=== PATIENT | female | born 1995 | race Caucasian/White ===

== ENCOUNTER → 2018-05-01 | Outpatient (CLI) | payer BC | LOC: COL.RAD 04-29 10:00 | DX: R35.0 Frequency of micturition (principal) | CPT/HCPCS: Q9967 ==

== ENCOUNTER → 2018-05-16 | Outpatient (CLI) | payer BC | LOC: COL.RAD 10:17 | DX: R35.0 Frequency of micturition (principal); R10.2 Pelvic and perineal pain ==

== ENCOUNTER → 2018-08-29 | Outpatient (CLI) | payer BC | LOC: COL.RAD 07:59 | DX: Z31.41 Encounter for fertility testing (principal) | CPT/HCPCS: Q9967 ==

== ENCOUNTER 2019-06-29 12:21 | Emergency (ER) | payer BC ==
[~2019-06-29] VITALS: Ht 167.6 cm; Wt 75.0 kg
[2019-06-29 13:02] VITALS: TEMP 98.7
[2019-06-29 13:55] LABS: BASO % 0.4 % (0.0-2.0); EOS # 0.1 (0.0-0.7); EOS % 0.6 % (0-4.0); GRAN # 7.2 (1.4-6.5); GRAN % 69.6 % (42.2-75.2); HEMATOCRIT 37.4 % (37.0-47.0); HEMOGLOBIN 12.6 g/dl (12.5-16.0); LYMPH # 2.2 (1.2-3.4); LYMPH % 20.9 % (20.0-51.0); MEAN CELL VOLUME 87 fl (80.0-100.0); MEAN CORPUSCULAR HEMOGLOBIN 29 pg (27.0-31.0); MEAN CORPUSCULAR HGB CONC 34 g/dl (33.0-37.0); MEAN PLATELET VOLUME 9.4 fl (7.4-10.4); MONO # 0.8 (0.1-0.6); MONO % 7.6 % (1.7-9.3); PLATELET COUNT 256 K/mm3 (130-400); RED BLOOD COUNT 4.31 M/mm3 (4.10-5.30)
[2019-06-29 14:04] LABS: PROTHROMBIN TIME 11.2 SECONDS (9.7-12.8)
[2019-06-29 14:08] LABS: ALBUMIN 3.6 gm/dL (3.5-5.0); BILIRUBIN,TOTAL 0.3 mg/dL (0.0-1.0); CREATININE, serum 0.43 (0.52-1.25); POTASSIUM 3.9 mmol/L (3.4-5.0); TOTAL PROTEIN 6.9 gm/dL (6.4-8.2)
--- NOTE | 2019-06-29 14:13 | NUR ---
1351- EFM and TOCO on and tracing. Pt is 35 weeks gestation. G1L0. Denies complications with , no VB, LOF, regular UCs. +FM per Pt. 1413- EFM and TOCO off. Category I FHR tracing noted. No UCs noted on monitor.
[2019-06-29 14:38] LABS: TSH w REFLEX 3.31 uIU/mL (0.465-4.680)
[2019-06-29 15:26] LABS: COLLECTION METHOD CLEAN CATCH
[2019-06-29 16:29] VITALS: BP 114/72; PULSE 109
[2019-06-29 16:32] LABS: PH 6 (5-8); URINE APPEARANCE Clear; URINE COLOR Yellow
[2019-06-29 16:33] LABS: URINE BILIRUBIN Negative (NEGATIVE); URINE BLOOD Negative (NEGATIVE); URINE GLUCOSE Negative (NEGATIVE); URINE KETONE Negative (NEGATIVE); URINE LEUKOCYTE ESTERASE Negative (NEGATIVE); URINE NITRATE Negative (NEGATIVE); URINE PROTEIN(semi-quant) Negative (NEGATIVE); URINE UROBILINOGEN Negative (NEGATIVE)
[2019-06-29 16:35] LABS: URINE RBC 0-2 /hpf
== END 2019-06-29 16:29 | disposition home or self-care (01) ==
LOC: COL.ER 12:21
PROVIDERS: Emergency Medicine
DX: O26.893 Other specified pregnancy related conditions, third trimester (principal); R00.2 Palpitations; Z3A.35 35 weeks gestation of pregnancy
CPT/HCPCS: J7030

== ENCOUNTER 2019-07-25 07:27 | Inpatient (IN) | payer BC ==
[~2019-07-25] VITALS: Ht 167.6 cm; Wt 76.8 kg
[2019-07-25] VITALS (58 sets, daily range): BP systolic 107–145; BP diastolic 55–98; PULSE 76–129; TEMP 97.8–98.6
[2019-07-25] MEDS ORDERED: BENADRYL25 M2 PO (07:56)
[2019-07-25] MEDS ORDERED: PRENATAL TABLET PO (07:56)
--- NOTE | 2019-07-25 08:00 | NUR ---
0740- Pt arrives on unit ambulatory for scheduled induction, present. Oriented to room. Pt into bathroom to change into gown. 0751- Pt into bed, EFM and TOCO on and tracing well. VSS. Assessment completed. IV started without difficulty, labs obtained. Pt tolerated well. Consent form explained and signed.
[2019-07-25 08:40] LABS: BASO % 0.5 % (0.0-2.0); EOS % 0.5 % (0-4.0); GRAN # 5.5 (1.4-6.5); GRAN % 68.1 % (42.2-75.2); HEMATOCRIT 37.1 % (37.0-47.0); HEMOGLOBIN 12.5 g/dl (12.5-16.0); LYMPH # 1.7 (1.2-3.4); LYMPH % 20.4 % (20.0-51.0); MEAN CELL VOLUME 87 fl (80.0-100.0); MEAN CORPUSCULAR HEMOGLOBIN 29 pg (27.0-31.0); MEAN CORPUSCULAR HGB CONC 34 g/dl (33.0-37.0); MEAN PLATELET VOLUME 9.6 fl (7.4-10.4); MONO # 0.8 (0.1-0.6); MONO % 9.9 % (1.7-9.3); PLATELET COUNT 264 K/mm3 (130-400); RED BLOOD COUNT 4.29 M/mm3 (4.10-5.30); REDCELL DISTRIBUTION WIDTH-CV 13.2 % (11.5-14.5)
[2019-07-25 08:43] LABS: ALBUMIN 3.6 gm/dL (3.5-5.0); BILIRUBIN,TOTAL 0.3 mg/dL (0.0-1.0); CALCIUM 9.2 mg/dL (8.4-10.2); CREATININE, serum 0.42 (0.52-1.25); POTASSIUM 4.2 mmol/L (3.4-5.0); TOTAL PROTEIN 6.7 gm/dL (6.4-8.2)
[2019-07-25 08:52] LABS: COLLECTION METHOD CLEAN CATCH
[2019-07-25 08:57] LABS: MUCOUS Present /lpf; PH 7 (5-8); SQUAMOUS EPITHELIAL 0-2 /hpf; URINE APPEARANCE Clear; URINE BACTERIA None Seen /hpf; URINE BILIRUBIN Negative (NEGATIVE); URINE BLOOD Negative (NEGATIVE); URINE COLOR Straw; URINE GLUCOSE Negative (NEGATIVE); URINE KETONE Negative (NEGATIVE); URINE LEUKOCYTE ESTERASE Negative (NEGATIVE); URINE NITRATE Negative (NEGATIVE); URINE PROTEIN(semi-quant) Negative (NEGATIVE); URINE RBC 0-2 /hpf; URINE UROBILINOGEN Negative (NEGATIVE); URINE WBC 0-2 /hpf
--- NOTE | 2019-07-25 11:15 | NUR ---
1058- Dr Layton at bedside, discusses plan of care, questions encouraged. Bedside US completed for position, noted to be vertex. SVE by MD with AROM, scant amount of clear fluid noted. Pt tolerated well.
--- NOTE | 2019-07-25 15:30 | NUR ---
Pt on birthing ball, FHR tracing scrathy due to maternal positioning. RN at bedside adjusting and holding monitor intermittently. UCs not tracing well due to maternal positioning. UCs noted approximately every 2-3 mins per palpation. Pt very uncomfortable with UCs. Coping well with coaching.
--- NOTE | 2019-07-25 19:10 | NUR ---
TOCO READJUSTED TO DETERMINE LATE OR EARLY DECELS
[2019-07-26 03:19] VITALS: BP 104/86; PULSE 114; TEMP 98.7
[2019-07-26 08:35] LABS: HEMATOCRIT 36.8 % (37.0-47.0); HEMOGLOBIN 12.5 g/dl (12.5-16.0)
[2019-07-26 09:00] VITALS: BP 131/75; PULSE 100; TEMP 97.4
--- NOTE | 2019-07-26 10:31 | NUR ---
Patient declined visit.
[2019-07-26 16:30] VITALS: BP 128/77; PULSE 79; TEMP 97.6
[2019-07-26 20:30] VITALS: BP 124/78; PULSE 86; TEMP 98
[2019-07-27 08:45] VITALS: BP 127/73; PULSE 97; TEMP 98
[2019-07-27] MEDS ORDERED: MOTRIN 600600 MG/TAB PO (09:19)
== END 2019-07-27 11:50 | disposition home or self-care (01) | DRG 807 ==
LOC: LDR 07:27 → OB 07-26 01:19
PROVIDERS: ADMIT Obstetrics & Gynecology
PROC: 10E0XZZ Delivery of Products of Conception, External Approach (ICD-10-PCS; principal; 2019-07-25)
PROC: 0HQ9XZZ Repair Perineum Skin, External Approach (ICD-10-PCS; 2019-07-25)
PROC: 3E033VJ Introduction of Other Hormone into Peripheral Vein, Percutaneous Approach (ICD-10-PCS; 2019-07-25)
DX: O14.93 Unspecified pre-eclampsia, third trimester (principal); Z37.0 Single live birth; O99.824 Streptococcus B carrier state complicating childbirth; O99.52 Diseases of the respiratory system complicating childbirth; J45.909 Unspecified asthma, uncomplicated; O70.0 First degree perineal laceration during delivery; O98 Maternal infectious and parasitic diseases classifiable elsewhere but complicating pregnancy, childbirth and the puerperium; Z3A.38 38 weeks gestation of pregnancy
CPT/HCPCS: J2405; J2540; J2590; J2795; J7120

== ENCOUNTER → 2019-07-29 | Outpatient (CLI) | payer BC ==
[~2019-07-29] MED LIST: BENADRYL25 M2 PO; MOTRIN 600600 MG/TAB PO; PRENATAL TABLET PO
--- NOTE | 2019-07-29 12:58 | NUR ---
Nancy Lyssa into walk in clinic with and 4 day old Katie for evaluation. Katie was born on [birth year] vis with a weight of 5#10 oz. Nancy states she has been nursing at least 8 times per day and is having at least 4 transitional stools per day. Nancy reports Katie is only having approx 2 wet diapers per day, but the diapers with stool may also have wet with them. Today's prefeed weight was noted as 5#7.4 oz (2478 gm). She nursed bilaterally, LC offering assistance with latch to obtain deeper latch and positioning. Katie had a total gain of 1.2 oz (34 gm). Her parents note she had eaten approx 30 min before coming into clinic as well. POC: Continue to feed ad tha, paying attention to latch and ensuring proper support of breast and baby. Return to clinic next week for weight check as desired. Questions encouraged and verbalized. Understanding verbalized.
== END ==
LOC: OLC 09:22
DX: Z39.1 Encounter for care and examination of lactating mother (principal); Z71.89 Other specified counseling

== ENCOUNTER → 2019-08-05 | Outpatient (CLI) | payer BC ==
--- NOTE | 2019-08-05 11:57 | NUR ---
Pt, Nancy Omalley, presents to walk-in clinic with 11 day old baby girl, Katie Omalley, and her spouse Lj. Katie was born on [birth year] and weighed 5#10oz (2551 gms). Last week at clinic she weighed 5# 7.4oz (2478 gms). Veronique has been Katie 8-11 times per 24 hours, she has had 5 voids and 3 yellow stools int he last 24 hours. Today Katie weighs 6#0.4oz (2732 gms), for a gain of 9oz in the last week. After today Katie has a weight gain of 2.3oz (68 gms). POC: Continue ad tha. F/U: As scheduled with Dr. Carver and clinic as needed. Questions invited and answered.
== END ==
LOC: LAC 11:07
DX: Z39.1 Encounter for care and examination of lactating mother (principal); Z71.89 Other specified counseling